=== PATIENT | female | born 1990 | race Asian ===

== ENCOUNTER 2023-06-18 12:38 | Emergency (ER) | payer OTHER ==
[~2023-06-18] VITALS: Ht 165.1 cm; Wt 82.2 kg
[2023-06-18] MEDS ORDERED: ACET-716 PO (14:27)
[2023-06-18] MEDS: NORCO, ANEXSIA 5/325MG TABLET (HYDROcodone/ACETAMINOPHEN) PO ONE (14:48)
[2023-06-18 15:09] LABS: HEMATOCRIT 36.3 % (36.0-47.0); HEMOGLOBIN 12.3 g/dl (12.0-15.5); MEAN CORPUSCULAR HGB CONC 33.9 g/dl (32.0-36.5); MEAN CORPUSCULAR VOLUME 91.4 fl (80.0-96.0); PLATELET COUNT, AUTOMATED 332 10^3/uL (150-450); RED BLOOD COUNT 3.97 10^6/uL (4.00-5.40); WHITE BLOOD COUNT 11.8 10^3/uL (4.0-10.0)
[2023-06-18 15:18] LABS: ERYTHROCYTE SEDIMENTATION RATE 84 mm/hr (0-20)
[2023-06-18] MEDS ORDERED: HYDR-3713 PO (15:40)
[2023-06-18 16:00] VITALS: BP 143/88; TEMP 98.4; O2SAT 99
== END 2023-06-18 16:11 | disposition home or self-care (01) ==
LOC: M ED 12:38
DX: G89.18 Other acute postprocedural pain (principal); Z48.817 Encounter for surgical aftercare following surgery on the skin and subcutaneous tissue; I10 Essential (primary) hypertension; J45.909 Unspecified asthma, uncomplicated; F17.220 Nicotine dependence, chewing tobacco, uncomplicated; Z79.1 Long term (current) use of non-steroidal anti-inflammatories (NSAID)